=== PATIENT | female | born 1985 | race Caucasian/White ===

== ENCOUNTER 2018-02-11 05:54 | Inpatient (IN) | payer OTHER ==
[~2018-02-11] VITALS: Ht 160 cm; Wt 2.7 kg
[~2018-02-11 05:54] MED LIST: ATABEX EC CAPL1 EACH PO; INTEGRA PLUS C1 EACH PO
== END 2018-02-13 14:13 | DRG 766 ==
LOC: O/R 05:54 → OB/GYN 07:00 → SURG-SUITE 13:38 → OB/GYN 14:21 → SURG-SUITE 02-13 14:13
PROVIDERS: Specialist
PROC: 0UL70ZZ Occlusion of Bilateral Fallopian Tubes, Open Approach (ICD-10-PCS; 2018-02-11)
PROC: 4A1HXCZ Monitoring of Products of Conception, Cardiac Rate, External Approach (ICD-10-PCS; 2018-02-11)
PROC: 10D00Z1 Extraction of Products of Conception, Low, Open Approach (ICD-10-PCS; principal; 2018-02-11 07:00)
DX: O75.3 Other infection during labor (principal); Z3A.38 38 weeks gestation of pregnancy; Z37.0 Single live birth; Z30.2 Encounter for sterilization